=== PATIENT | female | born 1985 | race Caucasian/White ===

== ENCOUNTER 2017-06-28 19:36 | Emergency (ER) | payer OTHER ==
[~2017-06-28] VITALS: Ht 165.1 cm; Wt 82.5 kg
[2017-06-28] MEDS ORDERED: Citalopram HBr10 MG PO (19:44)
[2017-06-28] MEDS ORDERED: GABA100 PO (19:44)
[2017-06-28] MEDS ORDERED: SUBOXONE 12 MG1 EACH (19:46)
[2017-06-28] MEDS ORDERED: Pepcid40 MG PO (19:55)
[2017-06-28] MEDS ORDERED: Prednisone20 MG PO (19:55)
[2017-06-28] MEDS ORDERED: BENADRYL25 MG PO (19:55)
== END 2017-06-28 20:06 | disposition home or self-care (01) ==
LOC: ER 19:36
DX: L23.7 Allergic contact dermatitis due to plants, except food (principal); Z88.0 Allergy status to penicillin; Z79.899 Other long term (current) drug therapy; Z87.891 Personal history of nicotine dependence
CPT/HCPCS: 96372; 99283; J3301; Q0163